=== PATIENT | female | born 1940 | race African-American/Black ===

== ENCOUNTER 2019-11-20 08:47 | Observation (INO) ==
[2019-11-20] MEDS ORDERED: MECLIZINE 25 MG TABLET PO STA (09:03)
[2019-11-20 09:43] LABS: Basophils % 0.6 % (0.0-0.8); Eosinophils # 0.1 10*3/uL (0.0-0.87); Eosinophils % 2.7 % (0.00-10.9); Hematocrit 31.3 VOL% (35.7-47.0); Hemoglobin 9.6 GM/DL (12.0-16.0); Immature Granulocytes % 0.3 %; Immature Granulocytes Absolute 0.01 #; Lymphocytes # 0.7 10*3/uL (1.4-4.0); Lymphocytes % 22.2 % (21.3-54.2); Mean Corpuscular HGB Conc 30.7 GM/DL (32-36); Mean Corpuscular Volume 82.2 FL (87-102); Mean Platelet Volume 11.1 FL (9.6-12.0); Monocytes % 6.6 % (1.7-12.7); Neutrophils % 67.6 % (38.7-73.9); Platelet Count 153 T/CUMM (130-400); Red Blood Count 3.81 MC/CUMM (3.8-5.5); Red Cell Distribution Width 23.9 % (9.3-17.3); White Blood Count 3.3 T/CUMM (4-12)
[2019-11-20 09:59] LABS: Apearance,Urine CLEAR (Clear); Bilirubin,Urine Negative (Negative); Blood, Urine Negative (Negative); Glucose,Urine (UA) Negative (Negative); Ketones,Urine Negative (Negative); Nitrite,Urine Negative (Negative); Protein,Urine Negative; Squamous Epithelial Cell,Urine Occasional /HPF (0-10); Urine Color Straw (Yellow); Urine Specific Gravity 1.008 (1.001-1.035); Urine Urobilinogen < 2.0 EU/DL (0.2-1.0); WBC,Urine <1 /HPF (0-6)
[2019-11-20 10:01] LABS: Calcium 8.4 MG/DL (8.5-10.1); Osmolality,Calculated 278.4 MOS/KG (273-304)
[2019-11-20 10:05] LABS: Anisocytosis 1+; Hypochromasia Slight; Platelet Estimate Normal
[2019-11-20 10:06] LABS: Ovalocytes Few
[2019-11-20] MEDS ORDERED: guaiFENesin/DM ER 600-30 MG TABLET PO PRN (11:10)
[2019-11-20] MEDS ORDERED: ACETAMINOPHEN 325 MG TABLET PO PRN (11:10)
[2019-11-20] MEDS ORDERED: ONDANSETRON 4 MG/2 ML VIAL IV PRN (11:10)
[2019-11-20] MEDS ORDERED: DEXTROSE 50% 25 GM/50 ML VIAL IV PRN (11:10)
[2019-11-20] MEDS ORDERED: hydrALAZINE 20 MG/1 ML VIAL IV PRN (11:10)
[2019-11-20] MEDS ORDERED: GLUCAGON 1 MG VIAL IM PRN (11:10)
[2019-11-20 13:41] LABS: Risk Ratio 3.18; Thyroid Stimulating Hormone 1.95 uIU/ml (0.358-3.74); VLDL CHOLESTEROL 17.4 MG/DL
[2019-11-20] MEDS: MECLIZINE 25 MG TABLET PO SCH ×2 (21:32→21:33)
[2019-11-20] MEDS: METOPROLOL TARTRATE 25 MG TABLET PO SCH (21:33)
[2019-11-21] MEDS: MECLIZINE 25 MG TABLET PO SCH ×3 (02:32→19:23)
[2019-11-21 05:54] LABS: Basophils % 0.6 % (0.0-0.8); Eosinophils # 0.2 10*3/uL (0.0-0.87); Eosinophils % 5.4 % (0.00-10.9); Hematocrit 30.8 VOL% (35.7-47.0); Hemoglobin 9.2 GM/DL (12.0-16.0); Immature Granulocytes % 0.3 %; Immature Granulocytes Absolute 0.01 #; Lymphocytes # 1.2 10*3/uL (1.4-4.0); Lymphocytes % 35.6 % (21.3-54.2); Mean Corpuscular HGB Conc 29.9 GM/DL (32-36); Mean Corpuscular Volume 81.9 FL (87-102); Mean Platelet Volume 11.6 FL (9.6-12.0); Monocytes % 9.4 % (1.7-12.7); Neutrophils % 48.7 % (38.7-73.9); Platelet Count 161 T/CUMM (130-400); Red Blood Count 3.76 MC/CUMM (3.8-5.5); Red Cell Distribution Width 23.7 % (9.3-17.3); White Blood Count 3.3 T/CUMM (4-12)
[2019-11-21 06:06] LABS: Calcium 8.8 MG/DL (8.5-10.1); Osmolality,Calculated 276.4 MOS/KG (273-304)
[2019-11-21 06:36] LABS: Anisocytosis 1+; Hypochromasia Slight; Macrocytosis Slight; Platelet Estimate Normal; Target Cells Few
[2019-11-21] MEDS: METOPROLOL TARTRATE 25 MG TABLET PO SCH ×2 (09:23→20:35)
[2019-11-21] MEDS: RIVAROXABAN 20 MG TABLET PO SCH (09:23)
[2019-11-21] MEDS: CETIRIZINE 10 MG TABLET PO SCH (09:23)
[2019-11-21] MEDS: PANTOPRAZOLE 40 MG TABLET PO SCH (09:24)
[2019-11-21 14:01] LABS: Troponin I 0.134 NG/ML (0.00-0.045)
[2019-11-21] MEDS: predniSONE 10 MG TABLET PO SCH (20:35)
[2019-11-22] MEDS: MECLIZINE 25 MG TABLET PO SCH (03:44)
[2019-11-22 05:23] LABS: Basophils % 0.5 % (0.0-0.8); Hematocrit 30.3 VOL% (35.7-47.0); Hemoglobin 9.5 GM/DL (12.0-16.0); Immature Granulocytes % 0.5 %; Immature Granulocytes Absolute 0.02 #; Lymphocytes # 0.4 10*3/uL (1.4-4.0); Mean Corpuscular HGB Conc 31.4 GM/DL (32-36); Mean Corpuscular Volume 80.8 FL (87-102); Platelet Count 177 T/CUMM (130-400); Red Blood Count 3.75 MC/CUMM (3.8-5.5); Red Cell Distribution Width 23.6 % (9.3-17.3); White Blood Count 3.7 T/CUMM (4-12)
[2019-11-22 05:42] LABS: Calcium 9.1 MG/DL (8.5-10.1); Osmolality,Calculated 273.7 MOS/KG (273-304)
[2019-11-22 05:46] LABS: % Iron Saturation 18.8 % (18-50); Ferritin 26.3 ng/ml (8-252); Hypochromasia Slight
[2019-11-22 05:47] LABS: Anisocytosis Slight; Macrocytosis Slight; Platelet Estimate Normal
[2019-11-22 05:58] LABS: Folate > 24.0 NG/ML (5.4-24.0); Vitamin B12 1092 PG/ML (211-911)
[2019-11-22 06:38] LABS: Sedimentation Rate-Westergren 72 MM/HR (0-30)
[2019-11-22] MEDS ORDERED: MULTIVITAMIN (INTRINSIC) CAPSULE PO SCH (09:00)
[2019-11-22] MEDS ORDERED: DILTIAZEM CD 180 MG CAPSULE PO SCH (09:00)
[2019-11-22] MEDS: METOPROLOL TARTRATE 25 MG TABLET PO SCH (09:18)
[2019-11-22] MEDS: PANTOPRAZOLE 40 MG TABLET PO SCH (09:18)
[2019-11-22] MEDS: predniSONE 10 MG TABLET PO SCH (09:18)
[2019-11-22] MEDS: CETIRIZINE 10 MG TABLET PO SCH (09:18)
[2019-11-22] MEDS: RIVAROXABAN 20 MG TABLET PO SCH (09:18)
[2019-11-22 10:37] LABS: Hemoglobin A1 (Alkaline) 97.3 % (96.5-98.5); Hemoglobin A2 (Alkaline) 2.7 % (1.5-3.5)
[2019-11-22 16:48] VITALS: BP 150/62
== END 2019-11-22 17:40 | disposition home health service (06) ==
LOC: EDUNIT# → EDBD → N.ED 08:47 → N.EDINP 08:47 → SUATTDRO 11:10 → N.TELES 18:09
PROVIDERS: ADMIT Internal Medicine; ATTEND Internal Medicine